=== PATIENT | female | born 1995 | race Caucasian/White ===

== ENCOUNTER 2017-11-12 15:34 | Emergency (ER) | payer MEDICAID ==
[~2017-11-12] VITALS: Ht 170.2 cm; Wt 62.2 kg
[~2017-11-12 15:34] MED LIST: IBUP-1986 PO; NEOM10SO7 OT; NO HOME MEDS
[2017-11-12 17:23] VITALS: BP 137/75
== END 2017-11-12 17:25 | disposition home or self-care (01) ==
LOC: ER 15:34
DX: F41.9 Anxiety disorder, unspecified (principal); F32.9 Major depressive disorder, single episode, unspecified
CPT/HCPCS: 99284

== ENCOUNTER 2019-07-28 11:44 | Emergency (ER) | payer MEDICAID, OTHER ==
[~2019-07-28] VITALS: Ht 170.2 cm; Wt 80.0 kg
[2019-07-28 11:47] VITALS: BP 130/80
[2019-07-28] MEDS ORDERED: HYDR28CR14 TOP (12:31)
== END 2019-07-28 12:47 | disposition home or self-care (01) ==
LOC: ER 11:45
DX: L51.9 Erythema multiforme, unspecified (principal); F41.9 Anxiety disorder, unspecified; Z79.899 Other long term (current) drug therapy
CPT/HCPCS: 99282

== ENCOUNTER 2019-08-03 09:35 | Emergency (ER) | payer MEDICAID, OTHER ==
[~2019-08-03] VITALS: Ht 170.2 cm; Wt 68.2 kg
[~2019-08-03 09:35] MED LIST changes: +HYDR28CR14 TOP
[2019-08-03 09:45] VITALS: BP 134/88
[2019-08-03] MEDS ORDERED: penicillin G benzathine 1.2 million unit/2ml syringe IM ONE (11:25)
[2019-08-03] MEDS ORDERED: METR-159 PO (12:22)
[2019-08-06 08:59] LABS: RPR Reactive (Non Reactive)
== END 2019-08-03 13:01 | disposition home or self-care (01) ==
LOC: ER 09:35
DX: N76.0 Acute vaginitis (principal); B96.89 Other specified bacterial agents as the cause of diseases classified elsewhere; A53.9 Syphilis, unspecified
CPT/HCPCS: 36415; 86592; 87210; 87491; 87591; 96372; 99283; J0561; Q0112

== ENCOUNTER 2019-08-05 09:54 | Emergency (ER) | payer MEDICAID ==
[~2019-08-05] VITALS: Ht 170.2 cm; Wt 69.0 kg
[~2019-08-05 09:54] MED LIST changes: +METR-159 PO
[2019-08-05 10:02] VITALS: BP 112/60
== END 2019-08-05 11:05 | disposition home or self-care (01) ==
LOC: ER 09:55
DX: I88.8 Other nonspecific lymphadenitis (principal)
CPT/HCPCS: 99281

== ENCOUNTER 2020-12-08 11:10 | Emergency (ER) | payer MEDICAID ==
[~2020-12-08] VITALS: Ht 170.2 cm; Wt 67.3 kg
[~2020-12-08 11:10] MED LIST changes: -METR-159 PO
[2020-12-08 11:19] VITALS: BP 121/70
[2020-12-08] MEDS ORDERED: PENI250T2 PO (11:45)
[2020-12-08] MEDS ORDERED: NAPR-56 PO (11:45)
== END 2020-12-08 12:15 | disposition home or self-care (01) ==
LOC: ER 11:10
DX: K08.89 Other specified disorders of teeth and supporting structures (principal); F17.200 Nicotine dependence, unspecified, uncomplicated; F12.90 Cannabis use, unspecified, uncomplicated; Z72.89 Other problems related to lifestyle; Z88.2 Allergy status to sulfonamides; Z79.899 Other long term (current) drug therapy
CPT/HCPCS: 99283

== ENCOUNTER 2021-09-19 14:59 | Emergency (ER) | payer MEDICAID ==
[~2021-09-19] VITALS: Ht 170.2 cm; Wt 77.3 kg
[2021-09-19 15:04] VITALS: BP 124/74
[2021-09-19] MEDS ORDERED: PRED20TA PO (15:41)
[2021-09-19] MEDS ORDERED: AMOX-422 PO (15:41)
[2021-09-19] MEDS ORDERED: dexamethasone 4mg tablet PO ONE (15:45)
[2021-09-19] MEDS ORDERED: DEXAMETHASONE 6 MG TABLET PO ONE (15:45)
== END 2021-09-19 16:12 | disposition home or self-care (01) ==
LOC: ER 14:59
DX: J02.0 Streptococcal pharyngitis (principal); Z20.822 Contact with and (suspected) exposure to COVID-19; R59.0 Localized enlarged lymph nodes; F12.90 Cannabis use, unspecified, uncomplicated; Z72.89 Other problems related to lifestyle
CPT/HCPCS: 87635; 87880; 99283; C9803; J8540

== ENCOUNTER 2022-06-12 07:44 | Emergency (ER) | payer MEDICAID, OTHER ==
[~2022-06-12] VITALS: Ht 170.2 cm; Wt 65.9 kg
[2022-06-12 07:56] VITALS: BP 135/82
[2022-06-12] MEDS ORDERED: ketorolac trometh. 30mg/ml inj. IM ONE (09:20)
[2022-06-12] MEDS ORDERED: clindamycin 150mg capsule PO ONE (09:20)
[2022-06-12] MEDS ORDERED: CLIN300C54 PO (09:23)
== END 2022-06-12 09:37 | disposition home or self-care (01) ==
LOC: ER 07:45
DX: K02.9 Dental caries, unspecified (principal); F17.200 Nicotine dependence, unspecified, uncomplicated; F41.9 Anxiety disorder, unspecified; F12.10 Cannabis abuse, uncomplicated; Z79.899 Other long term (current) drug therapy
CPT/HCPCS: 96372; 99283; J1885

== ENCOUNTER 2022-11-02 14:32 | Emergency (ER) | payer MEDICAID ==
[~2022-11-02] VITALS: Ht 172.7 cm; Wt 66.8 kg
[2022-11-02 14:47] VITALS: BP 126/76
[2022-11-02] MEDS ORDERED: PENI250T2 PO (15:51)
[2022-11-02] MEDS ORDERED: NAPR-56 PO (15:51)
[2022-11-02] MEDS ORDERED: ketorolac trometh inj. 60 MG/2 ML VIAL IM ONE (16:05)
== END 2022-11-02 16:20 | disposition home or self-care (01) ==
LOC: ER 14:32
DX: K04.7 Periapical abscess without sinus (principal); F12.90 Cannabis use, unspecified, uncomplicated
CPT/HCPCS: 96372; 99283; J1885

== ENCOUNTER 2025-05-09 13:53 | Emergency (ER) | payer MEDICAID ==
[~2025-05-09] VITALS: Ht 172.7 cm; Wt 77.7 kg
[2025-05-09 13:55] VITALS: BP 107/68; PULSE 79; RESP 16; TEMP 98.3; O2SAT 98
--- NOTE | 2025-05-09 14:21 | Physician Documentation ---
History of Present Illness ~ Chief Complaint: Finger pain Stated Complaint: FINGER PAIN Time Seen by MD: 14:15 Primary Medical Doctor: AVE GARCIA 30-YEAR-OLD FEMALE, PRESENTS TO THE ED WITH A COMPLAINT OF RIGHT RING FINGER PAIN FOR THE LAST TWO WEEKS. SHE STATES THAT SHE TRIPPED AND FELL WHEN TRYING TO GRAB HER SON JAMMING HER FINGER AND CAUSING PAIN. DENIES ANY NUMBNESS OR TINGLING REPORTS DECREASED RANGE OF MOTION DUE TO PAIN. Day of Onset: May 09, 2025 Tetanus within 5 years: Yes Medication Reconciliation Allergies: Coded Allergies: No Known Allergies (Unverified , 05/09/25) Scheduled Hydrocortisone (hydrocortisone 1% cream), 1 APPLIC TOP Q12H Ibuprofen (Ibuprofen), 1 TAB PO Q8H Neomy Sulf/Polymyx B Sulf/Hc (Cortisporin Otic Solution), 2 DROP OT TID Miscellaneous Medications Home Med List (No Home Medications), (Reported) Past Medical History Past Medical History: Anxiety Past Surgical History: other Alcohol Use: Occasionally Drug Use: marijuana Lives with: Family Lives In: Home Occupation: employed Physical Exam Vital Signs: Temperature: 98.3, Source: Temporal, Heart Rate: 79, Respiratory Rate: 16, BP: 107/68, Pulse Oximetry: 98, Weight: 77.700 Oxygen Flow Rate: 0 Physical Exam General: Alert, no apparent distress. Extremities: Normal range of motion, no deformity. Mild swelling at the proximal phalanges h right ring finger. Ecchymosis at the joint as well. Normal range of emotion. No fusiform swelling, pain not out of proportion Neurologic: Oriented x4. Psychiatric: Normal mood and affect. Skin: Normal color, warm and dry. No edema, no ecchymosis. Progress Results/Orders Results/Orders Orders - JAN ANN FIXTURE DESIGNER Finger(S) (05/09/25 14:21) General Nursing Order (05/09/25 ) Completed Orders - JAN ANN FIXTURE DESIGNER Finger(S) (05/09/25 14:21) Vital Signs 05/09/25 13:55 Temp 98.3 Pulse 79 Resp 16 B/P (MAP) 107/68 Pulse Ox 98 O2 Flow Rate 0 Medical Decision Making Findings Who she had any signs of acute injury subluxation or dislocation of the affected finger. Advise patient of this and educated her on home care. Ortho orders were completed via nursing staff and patient is discharged Departure Disposition: HOME / SELF CARE / HOMELESS Impression: Primary Impression: Finger pain, right Additional Impression: Sprain, finger Discharge Instructions: Sprains Additional Instructions: Your x-ray did not show any signs of fracture. I suspect that you hyperextended your finger or sprained it. These injuries can take time to heal. One way to help healing and alignment is froylan taping your finger as the nurse did for you. Referrals: NO PRIMARY CARE PROVIDER (PCP) Education Educated: Patient Educated regarding: diagnosis Signature Scribe Signature: Attestation: Scribed for Jan Ann Systems Engineering Manager by Jan Flro NP . 05/09/25 23:10 JAN ANN NP May 09, 2025 14:21
--- NOTE | 2025-05-09 14:46 | RADIOLOGY REPORT ---
DI FINGER(S), INDICATION: INJURY,right TECHNICAL DATA: Frontal view of the left hand and lateral and oblique views of the left pinky were ob tained. COMPARISON: None FINDINGS: No fracture is identified. Joint spaces are maintained. Alignment is anatomic. Soft tissues are withi n normal limits. IMPRESSION: No acute fracture or dislocation of the 5th digit visualized.
== END 2025-05-09 15:21 | disposition home or self-care (01) ==
LOC: ER 13:53
DX: S63.694A Other sprain of right ring finger, initial encounter (principal); F12.90 Cannabis use, unspecified, uncomplicated; F41.9 Anxiety disorder, unspecified; Z79.899 Other long term (current) drug therapy; Z72.89 Other problems related to lifestyle; W01.0XXA Fall on same level from slipping, tripping and stumbling without subsequent striking against object, initial encounter; Y93.89 Activity, other specified; Y92.89 Other specified places as the place of occurrence of the external cause; Y99.8 Other external cause status
CPT/HCPCS: 73140; 99283

== ENCOUNTER 2025-07-18 13:14 | Emergency (ER) | payer MEDICAID ==
[~2025-07-18] VITALS: Ht 170.2 cm; Wt 77.3 kg
[2025-07-18 13:20] VITALS: BP 134/77; PULSE 76; RESP 16; TEMP 97.9; O2SAT 100
[2025-07-18] MEDS ORDERED: HYDR-3686 PO (13:48)
--- NOTE | 2025-07-18 13:49 | Physician Documentation ---
History of Present Illness ~ Chief Complaint: Anxiety Stated Complaint: ANXIETY Time Seen by MD: 13:37 OK to notify your PCP?: Yes Primary Medical Doctor: AVE Source: patient Mode of Arrival: POV Exam Limitations: no limitations HPI 30-year-old female presents by ambulance for increased anxiety. She reports having 2 panic attacks today. She is currently going through some socioeconomic challenges in his living in a hotel with her 2 children and her mother. Social work has been in contact with housing already. She reports that she used to be seen by a counselor at [facility] and was due to see a psychiatrist to be placed on possible anxiety medication but unfortunately her appointment was canceled and she has not been seen yet. She denies any SI or HI. She endorses frustration with her current living situation. She is requesting something to help her calm down when she needs it as well as s omething to help her sleep. She has been on Zoloft in the past. Medication Reconciliation Allergies: Coded Allergies: No Known Allergies (Unverified , 07/18/25) Scheduled Hydrocortisone (hydrocortisone 1% cream), 1 APPLIC TOP Q12H Ibuprofen (Ibuprofen), 1 TAB PO Q8H Neomy Sulf/Polymyx B Sulf/Hc (Cortisporin Otic Solution), 2 DROP OT TID Scheduled PRN Hydroxyzine Hcl* (Atarax*), 1 TAB PO Q8H PRN for anxiety Miscellaneous Medications Home Med List (No Home Medications), (Reported) Past Medical History Past Medical History: Anxiety Past Surgical History: other Alcohol Use: Occasionally Drug Use: marijuana Lives with: Family Lives In: Home Occupation: employed Review of Systems All Other Systems at this time: Reviewed and Negative Physical Exam Vital Signs: RN Vital Signs have been reviewed: Yes, Temperature: 97.9, Source: Temporal, Heart Rate: 76, Respiratory Rate: 16, BP: 134/77, Pulse Oximetry: 100, Weight: 77.300 Oxygen Flow Rate: 0 Pulse Oximetry Reflects: adequate oxygenation Physical Exam General: Alert, no distress. HEENT: No injection, moist mucous membranes. Neck: Full range of motion. Respiratory: No respiratory distress, equal chest rise and fall. Chest: No accessory muscle use. Cardiovascular: Regular rate and rhythm. Gastrointestinal: Nondistended. Extremities: Normal range of motion, no deformity. Neurologic: Oriented x4. Psychiatric: Normal mood and affect. Skin: Normal color, warm and dry. Progress Results/Orders Reviewed/noted all lab results: Yes Results/Orders Orders - PRISCA BOWLES Hydroxyzine Tablet (Atarax Tablet) (07/18/25 13:50) Vital Signs 07/18/25 13:20 Temp 97.9 Pulse 76 Resp 16 B/P (MAP) 134/77 Pulse Ox 100 O2 Flow Rate 0 Medical Decision Making Additional information obtaine: old records Findings She admits to feeling less anxious after arriving here to the hospital from her ambulance ride. We discussed various treatment options and I feel that Atarax would be good for her to use up to 3 times a day as needed and she can use it nighttime to help her sleep. This is a non addictive medication and this gives her time to follow up with a mental of the professional. She denies any SI or HI. environmental services specialist have been contact with her about her housing situation althiago guadarrama. Differential Dx:Considerations: Include: Bipolar disorder, Conversion disorder, Depression, Homicidal, Schizophrenia, Suicidal Departure Disposition: 01 HOME / SELF CARE / HOMELESS Impression: Primary Impression: Panic attack Additional Impression: Anxiety Condition: Stable Discharge Instructions: Panic Attack Additional Instructions: Please work arm seeing a therapist to help with anxiety coping mechanisms. Also seek care for your anxiety with possible medication management. I have given you a 30 day supply of Atarax which you can use as needed up to 3 times a day. Cautioned when driving with this medication as it may cause drowsiness. Return back here for any new or worsening symptoms. Referrals: NO PRIMARY CARE PROVIDER (PCP) Prescriptions Hydroxyzine Hcl* (Atarax*) 25 Mg Tablet 1 TAB PO Q8H PRN for anxiety for 30 Days, #90 TAB Prov: PRISCA BOWLES 07/18/25 Education Educated: Patient Educated regarding: diagnosis, treatment, prognosis, need for follow up Additional Comment Medical Screen Exam This patient recieved a medical screening examination. After reviewing the individual's medical complaints with presenting symptoms and performing an appropriate physical examination, it was determined that no immediate life- threatening emergency medical condition is present. This individual is also not a women having contractions. Signature Scribe Signature: . Attestation: Scribed for Prisca Bowles by Prisca Flor NP . 07/18/25 13:53 Parts of this note were created using [employer] voice recognition software program. While efforts were made to correct any mistakes made by this voice recognition software program, nonsensical phrases may remain in this note. In addition, there may be errors and syntax, grammar, content and spelling. PRISCA BOWLES RESIDENTIAL ELECTRICIAN Jul 18, 2025 13:49
== END 2025-07-18 14:24 | disposition home or self-care (01) ==
LOC: ER 13:14
DX: F41.0 Panic disorder [episodic paroxysmal anxiety] (principal)
CPT/HCPCS: 99283; Q0177